=== PATIENT | male | born 1945 | race Caucasian/White ===

== ENCOUNTER → 2017-02-15 | Day surgery (SDC) | payer OTHER ==
[~2017-02-15] VITALS: Ht 182.9 cm; Wt 82.9 kg
[~2017-02-15] MED LIST: *LABETALOL HCL 100 MG/20 ML VIAL PERIprocedural Use ONLY ONE; ACETAMINOPHEN 1000 MG/100 ML VIAL IV ONE; ASPI81CH CHEW; ASPIRIN EC 81 MG TABEC PO SCH; ATOR10TA15 PO; ATROPINE SULFATE 1 MG/ML VIAL IV PUSH PRN; BUPIVACAINE/EPINEPHRINE 0.5% PF 30 ML VIAL ONE; CHLORHEXIDINE GLUCONATE 2 % 1 PACK (2 CLOTHS) TOPICAL PRN; CINN500C13 PO; COEN1CAP PO; DEXTROSE 50% IN WATER 50 ML VIAL(D50) IV PUSH PRN; ENALAPRILAT 1.25 MG/ML VIAL IV PUSH PRN; FAMOTIDINE 20 MG/2 ML VIAL ONE; FLAX100013 PO; GABA300C5 PO; GLUCAGON 1 MG/ML VIAL OTHER PRN; HEPARIN SODIUM - IV 10,000 UNITS/10 ML VIAL ONE; HEPARIN SODIUM - SQ 10,000 UNITS/ML VIAL ONE; IBUP200C17 PO; INSULIN HUMAN REGULAR 1,000 UNITS/10 ML VIAL SQ PRN; IOHEXOL 350 MG/ML 50 ML BTL (for RAD DIAG) ONE; LABETALOL HCL 100 MG/20 ML VIAL IV PRN; LACTATED RINGER'S 1000 ML IV PRN; LANTINJ SQ; LIDOCAINE HCL 1% 20 ML VIAL INFIL PRN; LORazepam 2 MG/ML VIAL IV PRN; MEDIUM DOSE INSULIN NOVOLOG SUPPLEMENTAL SCALE SQ SCH; METOCLOPRAMIDE HCL 10 MG/2 ML VIAL IV PRN; METOPROLOL TARTRATE 25 MG TAB PO PRN; MIDAZOLAM HCL 2 MG/2 ML VIAL ONE; MSM1000C PO; NITROPRUSSIDE 50 MG/D5W 250 ML IV PRN; ONDANSETRON HCL 4 MG/2 ML VIAL IV PUSH PRN; PHENYLEPH/NS 1000 MCG/10 ML SYR IV ONE; POTASSIUM CHLORIDE 20 MEQ CONTROLLED RELEASE TAB PO PRN; POVIDONE IODINE 5% (ANTISEPSIS KIT) 4 APPLICATIONS EACH NARE PRN; PROPOFOL 200 MG/20 ML AMP IV ONE; PROTAMINE SULFATE 50 MG/5 ML VIAL ONE; SODIUM CHLOR 0.9% 1000 ML INJ 1,000 ML IV SCH; SODIUM CHLOR 0.9% 250 ML INJ 250 ML IV ONE; SODIUM CHLORID 0.9% 500 ML IV PRN; SODIUM CHLORIDE FLUSH BID IV FLUSH SCH; SODIUM CHLORIDE FLUSH PRN IV FLUSH; ceFAZolin 1,000 MG/NS 100 ML IV SCH; cloNIDine HCL 0.1 MG TAB PO PRN; ePHEDrine/NS 25 MG/5 ML SYR IV ONE; oxyCODONE/ACETAMINOPHEN 5 MG/325 MG TAB PO PRN
[2017-02-15 06:12] LABS: MEAN CORPUSCULAR HGB CONC 36.5 % (32.0-36.0)
[2017-02-15 07:18] VITALS: BP 198/83; PULSE 69; RESP 18; TEMP 98.1; O2SAT 97
[2017-02-15 07:42] LABS: AUTOMATED NEUTROPHIL # 5.5 TH/MM3 (1.8-7.7); BASOPHIL # 0.1 TH/MM3 (0-0.2); BASOPHIL % 0.7 % (0.0-2.0); EOSINOPHIL # 0.3 TH/MM3 (0-0.4); EOSINOPHIL % 3.3 % (0.0-4.0); HEMATOCRIT 35.9 % (39.0-51.0); LYMPH % 22.7 % (9.0-44.0); LYMPHOCYTE # 1.9 TH/MM3 (1.0-4.8); MEAN CELL VOLUME 90.9 FL (80.0-100.0); MEAN CORPUSCULAR HEMOGLOBIN 33.2 PG (27.0-34.0); MONO % 8.2 % (0.0-8.0); NEUT % 65.1 % (16.0-70.0); PLATELET COUNT 226 TH/MM3 (150-450); RED BLOOD COUNT 3.95 MIL/MM3 (4.50-5.90); RED CELL DISTRIBUTION WIDTH 13.8 % (11.6-17.2); WHITE BLOOD COUNT 8.4 TH/MM3 (4.0-11.0)
[2017-02-15 07:49] LABS: HEMO FLAGS AUTO DIFF
[2017-02-15 08:08] LABS: BICARBONATE 28.9 MEQ/L (21.0-32.0); POTASSIUM 4.3 MEQ/L (3.5-5.1)
[2017-02-15 08:24] LABS: SCAN/DIFF AUTO DIFF CONFIRMED
[2017-02-15 17:09] VITALS: BP 169/90; PULSE 82; RESP 18; TEMP 98; O2SAT 95
--- NOTE | 2017-02-16 06:52 | EKG ---
Date Performed: 02/15/2017 Time Performed: 06:45:02 PTAGE: 71 years EKG: Sinus rhythm NORMAL ECG PREVIOUS TRACING : 05/30/2013 10.32 No significant change from previous tracing noted. DOCTOR: Dane Pang Interpretating Date/Time 02/16/2017 06:51:34
--- NOTE | 2017-02-16 12:40 | MP ---
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 PROCEDURE Aortofemoral arteriogram SURGEON Domingo Wing MD [employer] FELICIANO Antunez ANESTHESIA Local MAC DESCRIPTION OF PROCEDURE With the patient in the supine position and under IV sedation, the lower abdomen, both groins and thighs were prepped with Betadine and draped in a sterile fashion. Following a protocol time-out, the skin and subcutaneous tissue surrounding the proposed right common femoral access site was preemptively infiltrated with 0.5% Marcaine with epinephrine. Utilizing ultrasound guidance, an 18 gauge needle was inserted into the right mid common femoral lumen and a J-wire advanced under fluoroscopic guidance into the iliac artery. A 5-Bermudian hemostatic sheath was deployed over the J-wire. An advantage guidewire Omni catheter combination was negotiated into the subrenal aorta. Diluted contrast was injected through the Omni catheter in conjunction with digital C-arm fluoroscopic imaging. This confirmed a patent distal aorta, widely patent common internal and external iliac arteries bilaterally. The guidewire was negotiated into the left common femoral lumen and the Omni catheter advanced over the guidewire and parked within the mid left common femoral. Again, diluted contrast was injected in conjunction with digital C-arm fluoroscopic imaging. This revealed moderate eccentric plaque along the posterior wall of the mid and distal common femoral lumen producing what appeared to be 40-50% distal stenosis. The left superficial femoral artery flush occluded at its origin. The profunda was widely patent and profunda collaterals reconstituted the left popliteal above the knee. [id number], the popliteal appeared eccentrically constricted x30-40%. The anterior and posterior tibial arteries were occluded throughout. The peroneal provided single vessel runoff to the left ankle and at the ankle, the peroneal collateralized and reconstituted the plantar arch. On the right side, diluted contrast was injected via the 5-Bermudian sheath and complete angiographic evaluation of the right leg accomplished as well. This revealed a widely patent common and profunda femoral arteries. The SFA occluded at its origin. The profunda collaterals reconstituted the popliteal above the knee. The popliteal was patent throughout. The right posterior tibial and anterior tibial arteries were occluded and the peroneal provided uninterrupted flow on to the right lateral foot. The tarsal and metatarsal arteries were poorly visualized bilaterally. The preoperative CT angiogram performed in November had suggested patency of the left superficial femoral artery with diffuse disease throughout. 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 I had planned a potential attempt at left SFA orbital atherectomy, but given the interval to complete a TASC-B occlusion, I felt that endovascular revascularization in conjunction with single vessel runoff was not in this patient's best interest. Instead, if revascularization is required, he will need a conventional femoral-popliteal bypass. The 5-Bermudian sheath was removed from the right femoral artery and hemostasis achieved with compression. There were no operative complications. The patient returned to same-day surgery in stable condition having tolerated the procedure well. MD KRAIG Arora/MARVIN /5:38 PM /12:34 PM
== END | disposition home or self-care (01) ==
LOC: HSDC 05:57
PROVIDERS: ATTEND Surgery Vascular Surgery
DX: I70.245 Atherosclerosis of native arteries of left leg with ulceration of other part of foot (principal); E11.51 Type 2 diabetes mellitus with diabetic peripheral angiopathy without gangrene; E78.5 Hyperlipidemia, unspecified; E11.40 Type 2 diabetes mellitus with diabetic neuropathy, unspecified; Z87.891 Personal history of nicotine dependence; Z91.018 Allergy to other foods
CPT/HCPCS: 36246; 75710; 80048; 82948; 85025; 93005; C1769; J0131; J0690; J1644; J2250; J2370; J7030; J7120; Q9967; J2720